=== PATIENT | male | born 1985 | race Caucasian/White ===

== ENCOUNTER → 2022-08-15 | Outpatient (CLI) | payer BC ==
--- NOTE | 2022-08-15 12:16 | XR ---
Exam: Lumbosacral spine 5 views Date: 08/15/2022 Comparison: None Technique: Multiple views of the lumbar sacral spine were obtained per protocol. History: Low back pain. Findings: There is no significant lateral curvature of the lumbar spine. There are no obvious pars defects. Alexsandra tebral body heights and alignment are within normal limits. There is mild disc space narrowing at L5- S1 and at T12-L1. There is mild multilevel facet arthropathy, most significant at L4-S1. Impression: Mild lumbar spondylosis without compression deformity or spondylolisthesis.
== END | disposition home or self-care (01) ==
LOC: RADXRMAIN 11:23
PROVIDERS: ATTEND Internal Medicine
DX: M47.816 Spondylosis without myelopathy or radiculopathy, lumbar region (principal)
CPT/HCPCS: 72110